=== PATIENT | male | born 1970 | race Hispanic/Latino ===

== ENCOUNTER 2017-12-24 06:39 | Emergency (ER) | payer OTHER ==
[~2017-12-24] VITALS: Ht 180.3 cm; Wt 145.1 kg
[~2017-12-24 06:39] MED LIST: NO MEDICATIONS
[2017-12-24] MEDS ORDERED: ONDANSETRON HCL INJ 2 MG/ML VIAL IV STA (06:50)
[2017-12-24] MEDS ORDERED: SODIUM CHLORIDE 0.9% 1000ML 1,000 ML IV STA (06:50)
[2017-12-24] MEDS ORDERED: KETOROLAC TROMETHAMINE 30 MG/ML VIAL IV STA (06:50)
[2017-12-24] MEDS ORDERED: PANTOPRAZOLE 40 MG 10ML VIAL IV STA (06:50)
[2017-12-24 07:16] LABS: BASOPHILS % 0.3 % (0.0-1.0); EOSINOPHILS % 0.2 % (0.0-6.0); HEMOGLOBIN 14.4 g/dL (14.0-18.0); LYMPHOCYTES # (AUTO) 1.7 (1.0-3.2); LYMPHOCYTES % 16.8 % (18.0-39.1); MEAN CORPUSCULAR HEMOGLOBIN 29.5 pg (28-32); MEAN CORPUSCULAR HGB CONC 35.1 g/dL (31-35); MONOCYTES # (AUTO) 0.4 (0.2-0.8); MONOCYTES % 3.7 % (4.4-11.3); NEUTROPHILS # (AUTO) 7.8 (2.1-6.9); NEUTROPHILS % 78.4 % (38.7-80.0); PLATELET COUNT 194 x10e3/uL (140-360); RED BLOOD COUNT 4.88 x10e6/uL (4.3-5.7); RED CELL DISTRIBUTION WIDTH 12.4 % (11.7-14.4)
[2017-12-24 07:19] LABS: BILIRUBIN,URINE NEGATIVE (NEGATIVE); CLARITY,URINE HAZY (CLEAR); COLOR,URINE YELLOW (YELLOW); KETONES,URINE NEGATIVE (NEGATIVE); LEUKOCYTE ESTERASE ,URINE NEGATIVE (NEGATIVE); NITRITE,URINE NEGATIVE (NEGATIVE); PROTEIN,URINE DIPSTICK TRACE (NEGATIVE); URINE UROBILINOGEN 0.2 mg/dL (0.2 - 1)
[2017-12-24 07:24] LABS: BACTERIA,URINE FEW /HPF; EPITHELIAL CELLS,URINE FEW /LPF; RBC,URINE 0-5 /HPF (0-5); WBC,URINE (MAN) 0-5 /HPF (0-5)
[2017-12-24 07:26] LABS: INR 0.98; PROTHROMBIN TIME 12.2 seconds (11.9-14.5)
[2017-12-24 07:27] LABS: PARTIAL THROMBOPLASTIN TIME 24.7 seconds (23.8-35.5)
[2017-12-24 07:34] LABS: ALBUMIN/GLOBULIN RATIO 1.3 (0.8-2.0); CALCIUM 9.5 mg/dL (8.4-10.2); CREATININE, SERUM 1.31 mg/dL (0.72-1.25); MAGNESIUM 1.7 MG/DL (1.3-2.1)
[2017-12-24 07:41] LABS: CREATINE KINASE MB 6.7 ng/mL (0-5.0)
--- NOTE | 2017-12-24 07:56 | Diagnostic Imaging Report ---
EXAMINATION: CHEST SINGLE (PORTABLE) COMPARISON: None INDICATION: Left flank pain DISCUSSION: Frontal view of the chest obtained at 0737 hours. HEART AND MEDIASTINUM: The cardiomediastinal silhouette is unremarkable. LINES: None. LUNGS: The lungs are well inflated and clear. No mass or infiltrate. There is mild eventration of the right diaphragm. PLEURA: No pleural effusion or pneumothorax. BONES AND SOFT TISSUES: No focal osseous lesion. The soft tissues are normal. IMPRESSION: No acute cardiopulmonary disease. Signed by: Dr. Ana Maria Marmolejo MD on 12/24/2017 7:52 AM
--- NOTE | 2017-12-24 08:01 | Diagnostic Imaging Report ---
CT Abdomen and Pelvis without contrast INDICATION: Left flank pain TECHNIQUE: Thin collimation axial images obtained from the diaphragm to the level of the pubic symphysis without nonionic intravenous contrast. RADIATION DOSE: Total DLP: 1269.3 mGy*cm Estimated effective dose: (DLP x 0.015 x size factor) mSv CTDIvol has been reviewed. It is below the limits set by the Radiation Protocol Committee (RPC). COMPARISON: None. ABDOMEN FINDINGS: Lung Bases: Clear. The visualized portion of the mediastinum is normal. Liver: Diffusely low in attenuation consistent with steatosis. The right lobe measures 22 cm in length. Gallbladder: Present and appears normal. No ductal dilatation. Pancreas: Diffuse fatty atrophy. No mass or ductal dilatation.. Spleen: Normal size without mass. Adrenal Glands: No evidence for mass. Kidneys: Right: Calculus in the lower pole measures 3 mm.. No cortical mass or hydronephrosis Left: Multiple calculi measuring up to 9 mm. 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 There is mild distention of the lower pole moiety. No cortical mass Lymph Nodes: No enlarged abdominal or retroperitoneal lymph nodes. Aorta: Normal in diameter. PELVIS FINDINGS: Bowel: Stomach: Normal. Small Bowel: Normal in caliber with normal wall thickness. Large Bowel: Normal in caliber with normal wall thickness. Appendix: Normal. Bladder: Under distended but is normal. Ureters: There appears to be a single left ureter. This is mildly distended. Calculus in the distal left ureter at the UVJ measures 3 mm. The right ureter is collapsed. No free fluid or fluid collection. Bones: Mild degenerative changes of the spine. Trace anterolisthesis of L5 on S1 with bilateral pars defects. No compression deformities. Soft tissues: Mesh in the anterior abdomen wall at the level of the umbilicus. No evidence of hernia recurrence. IMPRESSION: 1. Mildly obstructing calculus in the distal left ureter at the UVJ. 2. Bilateral intrarenal calculi. 3. Hepatic steatosis and hepatomegaly. Signed by: Dr. Ana Maria Marmolejo MD on 12/24/2017 7:58 AM
[2017-12-24 09:11] VITALS: BP 121/65
== END 2017-12-24 09:08 | disposition home or self-care (01) ==
LOC: ER 06:39
DX: R10.32 Left lower quadrant pain (principal); R11.0 Nausea; N20.2 Calculus of kidney with calculus of ureter
CPT/HCPCS: 36415; 71045; 74176; 80053; 81001; 82550; 82553; 83735; 84484; 85025; 85610; 85730; 87086; 93005; 99284; J1885; J2405; J7030

== ENCOUNTER 2019-11-18 08:46 | Emergency (ER) | payer BC, OTHER ==
[~2019-11-18] VITALS: Ht 180.3 cm; Wt 146.3 kg
--- NOTE | 2019-11-18 10:28 | Diagnostic Imaging Report ---
EXAM: Cervical spine radiographs - 4 views INDICATION: Pain. COMPARISON: None FINDINGS: BONES: C1-C5 is visualized on the lateral view, with subsequent swimmer's view demonstrating C6 and C7, which is somewhat obscured. The alignment is within normal limits. No acute displaced fractures. Vertebral body heights are preserved. DISCS: Disc spaces are preserved. JOINTS: The facet joints are unremarkable. SOFT TISSUES: No acute radiographic abnormality. C6 and C7 are partially obscured by the overlying soft tissues. If of clinical concern, CT may be obtained. Signed by: Dr. Michi Dickerson MD on 11/18/2019 10:25 AM
--- NOTE | 2019-11-18 10:59 | Emergency Department Note ---
History of Present Illnes History of Present Illness Chief Complaint: Extremity Trauma/Pain History of Present Illness This is a 49 year old male Chief Complaint Comment Reports 2-3 days of neck pain down to his right arm tingling after sleeping and painful into his right side of his neck. . Historian: Patient Arrival Mode: Car Onset (how long ago): day(s) (2) Location: neck right arm Radiation: Denies non-radiation, Denies back, Denies neck, Denies extremity, Denies abdomen, Denies periumbilical, Denies flank, Denies proximal, Denies distal, Denies other Severity: moderate Onset quality: gradual Duration (how long): day(s) (2) Timing of current episode: constant Progression: waxing and waning Chronicity: new Context: Denies recent illness, Denies recent surgery, Denies recent immobilization, Denies recent travel, Denies trauma/injury, Denies new medications, Denies hx of DVT/PE, Denies non-compliance w/ medications, Denies other Relieving factors: none Exacerbating factors: none Associated symptoms: Reports denies other symptoms Treatments prior to arrival: none Past Medical/Family History Physician Review I have reviewed the patient's past medical and family history. Any updates have been documented here. Past Medical History Recent Fever: No Clinical Suspicion of Infectio: No New/Unexplained Change in Ment: No Past Medical History: Hypertension, Diabetes Past Surgical History: Hernia Repair Other Surgery: left finger surgery Social History Smoking Cessation: Never Smoker Counseling Performed: No Alcohol Use: None Any Illegal Drug Use: No TB Exposure/Symptoms: No Physically hurt or threatened: No Family History Family history of heart diseas: Yes Other Last Tetanus: UNK Any Pre-Existing Lines (PICC,: No Is patient up to date on immun: Yes Last Flu: none Last Pneumovax: none Review of Systems Review of Systems Constitutional: Reports no symptoms EENTM: Reports no symptoms Cardiovascular: Reports no symptoms Respiratory: Reports no symptoms Gastrointestinal: Reports no symptoms Genitourinary: Reports no symptoms Musculoskeletal: Reports as per HPI Integumentary: Reports no symptoms Neurological: Reports no symptoms Psychological: Reports no symptoms Endocrine: Reports no symptoms Hematological/Lymphatic: Reports no symptoms Physical Exam Related Data Allergies: Coded Allergies: No Known Allergies (Unverified , 03/21/12) Triage Vital Signs Vital Signs Date Time Temp Pulse Resp B/P (MAP) Pulse Ox O2 Delivery O2 Flow Rate FiO2 11/18/19 08:52 97.0 68 18 155/92 97 Vital signs reviewed: Yes Physical Exam CONSTITUTIONAL Constitutional: Present well-developed, Present well-nourished HENT HENT: Present normocephalic, Present atraumatic, Present oropharynx clear/moist, Present nose normal HENT L/R: Present left ext ear normal, Present right ext ear normal EYES Eyes: Reports PERRL, Reports conjunctivae normal NECK Neck: Present ROM normal, Present other (tender) PULMONARY Pulmonary: Present effort normal, Present breath sounds normal CARDIOVASCULAR Cardiovascular: Present regular rhythm, Present heart sounds normal, Present capillary refill normal, Present normal rate GASTROINTESTINAL Abdominal: Present soft, Present nontender, Present bowel sounds normal GENITOURINARY Genitourinary: Present exam deferred SKIN Skin: Present warm, Present dry MUSCULOSKELETAL Musculoskeletal: Present ROM normal, Present other (tender neck back right knee ankle wrist) NEUROLOGICAL Neurological: Present alert, Present oriented x 3, Present no gross motor or sensory deficits PSYCHOLOGICAL Psychological: Present mood/affect normal, Present judgement normal Results Imaging Imaging results reviewed: Yes Assessment & Plan Medical Decision Making MDM contusion fracture Reassessment Reassessment time: 10:57 Reassessment better Assessment & Plan Final Impression: (1) Radiculopathy, cervical region (2) Neck pain Depart Disposition: HOME, SELF-CARE Last Vital Signs Date Time Temp Pulse Resp B/P (MAP) Pulse Ox O2 Delivery O2 Flow Rate FiO2 11/18/19 08:52 97.0 68 18 155/92 97 Home Meds Reported Medications [No Medications] No Conflict Check 03/21/12 CYNTHIA KNUTSON MD Nov 18, 2019 10:58
== END 2019-11-18 11:10 | disposition home or self-care (01) ==
LOC: FSED 08:46
DX: M54.12 Radiculopathy, cervical region (principal); I10 Essential (primary) hypertension; E11.9 Type 2 diabetes mellitus without complications
CPT/HCPCS: 72040; 99283

== ENCOUNTER 2023-11-20 10:15 | Emergency (ER) | payer BC ==
[~2023-11-20] VITALS: Ht 180.3 cm; Wt 115.7 kg
[2023-11-20] MEDS ORDERED: PROBIOTIC & AC1 EACH PO (10:51)
[2023-11-20] MEDS ORDERED: BACTRIM DS TAB1 EACH PO (10:51)
[2023-11-20] MEDS ORDERED: TYLENOL325 MG PO (10:51)
[2023-11-20] MEDS: Vancomycin IV 1 GM in SODIUM CHLORIDE 0.9% 250ML 250 ML IV ONE ×2 (10:57→10:59)
[2023-11-20] MEDS ORDERED: Vancomycin IV 500 MG in SODIUM CHLORIDE 0.9% 100 ML IV ONE (11:00)
[2023-11-20] MEDS: INSULIN REGULAR, HUMAN 100 UNIT/1 ML SQ ONE (11:25)
[2023-11-20 13:24] VITALS: PULSE 87; RESP 18; TEMP 98; O2SAT 95
== END 2023-11-20 13:20 | disposition home or self-care (01) ==
LOC: FSED 10:19
DX: M71.122 Other infective bursitis, left elbow (principal); L03.114 Cellulitis of left upper limb; I10 Essential (primary) hypertension; E11.9 Type 2 diabetes mellitus without complications
CPT/HCPCS: 80053; 99284; J3370 ×2; J7050 ×2